=== PATIENT | male | born 1965 | race Caucasian/White ===

== ENCOUNTER 2019-06-13 14:32 | Outpatient (CLI) | payer OTHER | END 2019-06-13 14:52 | disposition home or self-care (01) | LOC: SONOGRAMA 14:32 | DX: J20.8 Acute bronchitis due to other specified organisms (principal); N40.0 Benign prostatic hyperplasia without lower urinary tract symptoms; N39.0 Urinary tract infection, site not specified ==

== ENCOUNTER 2019-06-13 15:33 | Outpatient (CLI) | payer OTHER | END 2019-06-13 15:45 | disposition home or self-care (01) | LOC: LAB 15:33 | DX: N30.00 Acute cystitis without hematuria (principal) ==